=== PATIENT | male | born 1980 | race African-American/Black ===

== ENCOUNTER 2020-02-01 22:17 | Emergency (ER) | payer OTHER, MEDICAID ==
[~2020-02-01] VITALS: Ht 175.3 cm; Wt 86.4 kg
[2020-02-01 22:22] VITALS: BP 111/88
--- NOTE | 2020-02-01 22:35 | NUR ---
39 YEAR OLD MALE COMPLAINS OF BILATERAL LEG PAIN THAT HAS BEEN PROGRESSIVELY GETTING WORSE OVER THE WEEK. PATIENT DENIES SENSATION IN LEGS BUT STATES HE HAS HAD NEUROPATHY FOR THE PAST 4 YEARS. PATIENT AOX4, BREATHING EVEN AND UNLABORED, LUNGS CTABL, SKIN WARM AND DRY. BED IN LOWEST POSITION, LOCKED, BED RAIL UPX1. ERMD AT BEDSIDE. PMH - NEUROPATHY, DIABETES ALLERGIES - DENIES
[2020-02-01] MEDS ORDERED: KETOROLAC 60 MG/2 ML VIAL IM ONE (22:40)
[2020-02-01] MEDS ORDERED: CYCLOBENZAPRINE 10 MG TAB PO ONE (22:40)
--- NOTE | 2020-02-01 22:48 | NUR ---
PATIENT STATES HIS BLOOD SUGAR IS VERY HIGH BECAUSE 2 HOURS PRIOR TO ARRIVAL HIS BLOOD SUGAR WAS 20 AND HE WAS SHAKING, THEN HE DRANK A "GALLON OF JUICE"
[2020-02-01] MEDS ORDERED: NACL 0.9% 1,000 ML IV SCH (22:51)
--- NOTE | 2020-02-01 23:13 | NUR ---
PATIENT ALERT AND AWAKE, BREATHING EVEN AND UNLABORED. MULTIPLE RNS AT BEDSIDE ATTEMPTING TO PLACE IV
[2020-02-01 23:18] LABS: EOSINOPHILS # (AUTO) 0.1 K/uL (0-0.4); MEAN CORPUSCULAR VOLUME 87.4 fL (80-94); MONOCYTES # (AUTO) 0.5 K/uL (0.8-1.0); RED CELL DISTRIBUTION WIDTH 12.4 % (11.6-13.7)
[2020-02-01 23:23] LABS: BASOPHILS # (AUTO) 0.1 K/uL (0.00-0.22); BASOPHILS % (AUTO) 0.9 % (0.0-2.0); EOSINOPHILS % (AUTO) 0.8 % (0.0-4.0); HEMATOCRIT 35.3 % (36-52); HEMOGLOBIN 11.5 g/dL (12.0-18.0); LYMPHOCYTES # (AUTO) 0.8 K/uL (2.0-11.5); LYMPHOCYTES % (AUTO) 11.7 % (20.5-51.1); MEAN CORPUSCULAR HEMOGLOBIN 29 pg (27-31); MEAN CORPUSCULAR HGB CONC 33 g/dL (33-37); MONOCYTES % (AUTO) 6.5 % (1.7-9.3); NEUTROPHILS # (AUTO) 5.7 K/uL (1.8-7.7); NEUTROPHILS % (AUTO) 80.1 % (42.2-75.2); PLATELET COUNT (AUTO) 594 K/uL (140-450); RED BLOOD CELL COUNT(AUTO) 4.04 MIL/uL (4.20-6.10)
--- NOTE | 2020-02-01 23:26 | NUR ---
SUPPLIER QUALITY SPECIALIST AT BEDSIDE STILL UNABLE TO GET IV ACCESS, TESSY MADE AWARE
[2020-02-01 23:41] LABS: ALBUMIN 3.1 g/dL (3.4-5.0); TOTAL BILIRUBIN 0.3 mg/dL (0.0-1.0)
[2020-02-01] MEDS ORDERED: INSULIN REGULAR, HUMAN 100 UNIT/ML VIAL SUBQ ONE (23:45)
[2020-02-01 23:55] LABS: WHITE BLOOD COUNT (AUTO) 7.1 K/uL (4.8-10.8)
[2020-02-01 23:57] LABS: APPEARANCE,URINE CLEAR (CLEAR); BILIRUBIN,URINE NEGATIVE (NEGATIVE); BLOOD, URINE NEGATIVE (NEGATIVE); COLOR,URINE YELLOW (YELLOW); LEUKOCYTE ESTERASE ,URINE NEGATIVE (NEGATIVE); NITRITE, URINE NEGATIVE (NEGATIVE); UGLUCOSE 3+ (NEGATIVE)
--- NOTE | 2020-02-01 23:59 | NUR ---
RECEIVED CRITICAL LAB VALUES FROM [facility]. K = 7.0 AND GLU = 747. REPORTED CRITICAL LAB VALUE TO DR. PEREZ. DR. PEREZ TO SEE PT.
--- NOTE | 2020-02-02 00:02 | NUR ---
EKG PERFORMED AT BEDSIDE
--- NOTE | 2020-02-02 00:02 | NUR ---
PT ON 3 LEAD ECG AND PULSE OX. RR EVEN AND UNLABORED. PULSE 113, R20, O2 100
[2020-02-02] MEDS ORDERED: SODIUM BICARBONATE 8.4% PFS 50 MEQ/50 ML SYR IVP ONE (00:05)
[2020-02-02] MEDS ORDERED: ALBUTEROL 0.083% 2.5 MG/3 ML NEBU INH ONE ×2 (00:05→01:46)
[2020-02-02] MEDS ORDERED: INSULIN REGULAR, HUMAN 100 UNIT in NACL 0.9% 100 ML IV ONE ×2 (00:05)
[2020-02-02] MEDS ORDERED: NACL 0.9% 1,000 ML IV ONE ×2 (00:10→00:50)
--- NOTE | 2020-02-02 00:10 | NUR ---
PATIENT FAMILY GIVEN UPDATE
[2020-02-02] MEDS ORDERED: BLOOD GLUCOSE MONITORING 1 DEV DEV FS ONE (00:50)
--- NOTE | 2020-02-02 01:00 | NUR ---
RT CALLED REGARDING BREATHING TREATMENT
--- NOTE | 2020-02-02 01:00 | NUR ---
PATIENT ALERT AND AWAKE, BREATHING EVEN AND UNLABORED
--- NOTE | 2020-02-02 01:48 | NUR ---
RT AT BEDSIDE
--- NOTE | 2020-02-02 02:43 | NUR ---
PATIENT RESTING WITH EYES CLOSED, BREATHING EVEN AND UNLABORED
--- NOTE | 2020-02-02 02:43 | NUR ---
Khai pruett in [facility] - 02/02/[address] [facility] PATIENT RESTING WITH EYES CLOSED, BREATHING EVEN AND UNLABORED
--- NOTE | 2020-02-02 03:20 | NUR ---
PATIENT ALERT AND AWAKE, BREATHING EVEN AND UNLABORED
[2020-02-02 03:31] LABS: ANION GAP 10.7 (8-16); CARBON DIOXIDE 28.2 mmol/L (21-32); CREATININE 1.9 mg/dL (0.6-1.3); POTASSIUM 4.9 mmol/L (3.5-5.1)
[2020-02-02] MEDS ORDERED: ACETAMINOPHEN EXTRA STRENGTH 500 MG TAB PO ONE (03:55)
--- NOTE | 2020-02-02 04:10 | NUR ---
Patient states he still has pain but is much more tolerable and ok with discharge
--- NOTE | 2020-02-02 04:10 | NUR ---
Patient discharged with v/s stable. Written and verbal after care instructions about sciatica given and explained. Patient alert, oriented and verbalized understanding of instructions. Ambulatory with steady gait. All questions addressed prior to discharge. ID band removed. Patient advised to follow up with PMD. Rx of flexeril, naproxen, and lidocaine given. Patient educated on indication of medication including possible reaction and side effects. Opportunity to ask questions provided and answered.
[2020-02-02 04:15] VITALS: BP 130/81
== END 2020-02-02 04:10 | disposition home or self-care (01) ==
LOC: MED 22:17
DX: M54.40 Lumbago with sciatica, unspecified side (principal); E10.65 Type 1 diabetes mellitus with hyperglycemia; E86.0 Dehydration; N17.9 Acute kidney failure, unspecified; R00.0 Tachycardia, unspecified; J45.909 Unspecified asthma, uncomplicated
CPT/HCPCS: 36415; 80048; 80053; 81003; 82150; 82803; 82948; 83605; 83690; 85025; 93005; 94640; 96361; 96365; 96366; 96372; 96375; 99284; J1815; J1885; J7030; J7613